=== PATIENT | male | born 1945 | race Caucasian/White ===

== ENCOUNTER 2024-05-26 14:57 | Inpatient (IN) | payer OTHER ==
[~2024-05-26] VITALS: Ht 154.9 cm; Wt 83.2 kg
[~2024-05-26 14:57] MED LIST: AMLODIPINE BESYL5 MG PO; ATORVASTATIN CA10 M1 PO; BELBUCA75 MCG BC; BUPROPION75 MG PO; CARBIDOPA-LEVO1 EAC2 PO; ELIQUIS2.5 M1 PO; ELIQUIS5 M1 PO; FLOMAX0.4 MG PO; INFLUENZA VACCINE; LISINOPRIL20 MG PO; LOPRESSOR25 MG PO; MEMANTINE HCL10 MG PO; OMNICEF300 MG PO; PROPAFENONE HY150 MG PO; PROTONIX40 MG PO; QUETIAPINE FUM100 M1 PO; Sinemet Cr 25-11 TAB PO; Sinemet Cr 50/21 TAB PO; TOPROL XL25 MG PO
[2024-05-26 15:09] VITALS: BP 148/68
[2024-05-26] MEDS ORDERED: ACETAMINOPHEN 325 MG TAB PO PRN (16:25)
[2024-05-26] MEDS ORDERED: Ondansetron Hydrochloride 4 MG/2 ML VIAL IV PRN (16:25)
[2024-05-26] MEDS ORDERED: Magnesium Hydroxide 30 ML UDC PO PRN (16:25)
[2024-05-26] MEDS ORDERED: BISACODYL 5 MG TAB PO PRN (16:25)
[2024-05-26] MEDS ORDERED: BISACODYL 10 MG SUPP R PRN (16:25)
[2024-05-26] MEDS ORDERED: Acetaminophen/Hydrocodone 5 MG/325 MG TABLET PO PRN (16:25)
[2024-05-26 16:29] LABS: BASO % 0.4 % (0.0-1.0); EOS # 0.3 10*3/uL (0.0-0.4); EOS % 5.4 % (1.0-4.0); HEMATOCRIT 37.4 % (42.0-52.0); MEAN CELL VOLUME 93.7 fl (80.0-94.0); MEAN CORPUSCULAR HGB 29.8 pg (27.0-31.0); MEAN CORPUSCULAR HGB CONC 31.8 g/dl (33.0-37.0); MEAN PLATELET VOLUME 9.8 fl (9.6-12.3); MONO # 0.5 10*3/uL (0.1-1.0); MONO % 9.1 % (3.0-9.0); NEUT # 2.6 10*3/uL (2.3-7.9); NEUT % 49.1 % (47.0-73.0); PLATELET COUNT AUTOMATED 141 10*3/uL (130-400); RED BLOOD COUNT 3.99 10*6/uL (4.50-5.90); RED CELL DISTRI WIDTH 13.6 % (0-14.5); WHITE BLOOD COUNT 5.2 10*3/uL (4.8-10.8)
[2024-05-26 16:48] LABS: BUN 27 mg/dl (9-23); CHLORIDE 107 mmol/L (98-107); POTASSIUM 3.8 mmol/L (3.4-5.1)
[2024-05-26] MEDS ORDERED: MELATONIN10 M2 PO (16:49)
[2024-05-26] MEDS ORDERED: MELOXICAM15 MG PO (16:49)
[2024-05-26] MEDS ORDERED: AREXVY VIA120 MCG/0. IM (16:50)
[2024-05-26] MEDS ORDERED: Carbidopa/Levodopa CR 25/100MG 1 TAB PO SCH (18:00)
[2024-05-26] MEDS ORDERED: ATORVASTATIN CALCIUM 10 MG TAB PO SCH (18:00)
[2024-05-26] MEDS ORDERED: LORazepam 2 MG/ML VIAL IV ONE (21:40)
[2024-05-26] MEDS ORDERED: LORazepam 2 MG/ML VIAL ONE (21:56)
[2024-05-26] MEDS ORDERED: CEFDINIR 300 MG CAP PO SCH (22:00)
[2024-05-26] MEDS ORDERED: buPROPion Hydrochloride 75 MG TAB PO SCH (22:00)
[2024-05-26] MEDS ORDERED: [UNRECOGNIZED DRUG - OTHER] PO SCH (22:00)
[2024-05-26] MEDS ORDERED: Metoprolol Tartrate 25 MG TAB PO SCH (22:00)
[2024-05-26] MEDS ORDERED: Memantine Hydrochloride 10 MG TAB PO SCH (22:00)
[2024-05-26] MEDS ORDERED: APIXABAN 5 MG TAB PO SCH (22:00)
[2024-05-26] MEDS ORDERED: Melatonin 5 MG TABLET PO SCH (22:00)
[2024-05-26] MEDS ORDERED: LISINOPRIL 20 MG TAB PO SCH (22:00)
[2024-05-26] MEDS ORDERED: QUETIAPINE FUMARATE 100 MG TAB PO SCH (22:00)
[2024-05-26 23:20] VITALS: BP 126/52
[2024-05-26 23:45] VITALS: BP 108/52
[2024-05-27] MEDS ORDERED: ACETAMINOPHEN500 M4 PO (03:13)
[2024-05-27] MEDS ORDERED: Pantoprazole Sodium 40 MG TAB PO SCH (06:00)
[2024-05-27 06:46] LABS: ALKALINE PHOSPHATASE 82 U/L (46-116); BUN 27 mg/dl (9-23); CHLORIDE 106 mmol/L (98-107); POTASSIUM 4.1 mmol/L (3.4-5.1); TOTAL PROTEIN 6.3 gm/dL (6.0-8.0)
[2024-05-27 07:02] LABS: SGPT/ALT < 7 U/L (5-49)
[2024-05-27 07:03] LABS: BASO % 0.4 % (0.0-1.0); EOS # 0.1 10*3/uL (0.0-0.4); EOS % 1.1 % (1.0-4.0); HEMATOCRIT 36.3 % (42.0-52.0); MEAN CELL VOLUME 92.6 fl (80.0-94.0); MEAN CORPUSCULAR HGB 29.1 pg (27.0-31.0); MEAN CORPUSCULAR HGB CONC 31.4 g/dl (33.0-37.0); MEAN PLATELET VOLUME 10.5 fl (9.6-12.3); MONO # 0.6 10*3/uL (0.1-1.0); NEUT # 5.1 10*3/uL (2.3-7.9); NEUT % 69.2 % (47.0-73.0); PLATELET COUNT AUTOMATED 126 10*3/uL (130-400); RED BLOOD COUNT 3.92 10*6/uL (4.50-5.90); RED CELL DISTRI WIDTH 13.8 % (0-14.5); WHITE BLOOD COUNT 7.3 10*3/uL (4.8-10.8)
[2024-05-27 08:00] VITALS: BP 128/68
[2024-05-27] MEDS ORDERED: Tamsulosin Hydrochloride 0.4 MG CAP PO SCH (10:00)
[2024-05-27] MEDS ORDERED: amLODIPine besylate 5 MG TAB PO SCH (10:00)
[2024-05-27 12:00] VITALS: BP 133/56
[2024-05-27] MEDS ORDERED: HYDROCODONE-AC1 EAC1 PO (14:57)
[2024-05-27 16:00] VITALS: BP 133/68
[2024-05-28] MEDS ORDERED: MUPIROCIN 15 GM TUBE T SCH (10:00)
== END 2024-05-27 18:50 | DRG 554 ==
LOC: ED 14:57 → 4E 15:54 → EDHOLD 15:54 → 4E 23:08
PROVIDERS: Student in an Organized Health Care Education/Training Program; ADMIT Internal Medicine; ATTEND Internal Medicine
DX: M16.12 Unilateral primary osteoarthritis, left hip (principal); F02.83 Dementia in other diseases classified elsewhere, unspecified severity, with mood disturbance; G20.A1 Parkinson's disease without dyskinesia, without mention of fluctuations; K21.9 Gastro-esophageal reflux disease without esophagitis; G47.00 Insomnia, unspecified; S91.102A Unspecified open wound of left great toe without damage to nail, initial encounter; I48.91 Unspecified atrial fibrillation; N40.0 Benign prostatic hyperplasia without lower urinary tract symptoms; E78.5 Hyperlipidemia, unspecified; I10 Essential (primary) hypertension; R27.0 Ataxia, unspecified; S80.811A Abrasion, right lower leg, initial encounter; K08.409 Partial loss of teeth, unspecified cause, unspecified class; Z88.0 Allergy status to penicillin; Z88.8 Allergy status to other drugs, medicaments and biological substances; Z91.09 Other allergy status, other than to drugs and biological substances; Z79.899 Other long term (current) drug therapy; Z79.01 Long term (current) use of anticoagulants; Z79.2 Long term (current) use of antibiotics; Z82.49 Family history of ischemic heart disease and other diseases of the circulatory system; X58.XXXA Exposure to other specified factors, initial encounter; Y93.89 Activity, other specified; Y92.89 Other specified places as the place of occurrence of the external cause; Y99.8 Other external cause status

== ENCOUNTER 2024-06-16 23:47 | Emergency (ER) | payer OTHER ==
[~2024-06-16] VITALS: Ht 182.8 cm; Wt 77.1 kg
[~2024-06-16 23:47] MED LIST changes: +ACETAMINOPHEN500 M4 PO; +AREXVY VIA120 MCG/0. IM; +HYDROCODONE-AC1 EAC1 PO; +MELATONIN10 M2 PO; +MELOXICAM15 MG PO
[2024-06-17] MEDS ORDERED: Bacitracin Zinc 14 GM TUBE T ONE (00:55)
== END 2024-06-17 01:54 ==
LOC: ED 23:47
DX: S01.01XA Laceration without foreign body of scalp, initial encounter (principal); I10 Essential (primary) hypertension; I48.91 Unspecified atrial fibrillation; M19.90 Unspecified osteoarthritis, unspecified site; R40.4 Transient alteration of awareness; Z88.0 Allergy status to penicillin; Z88.1 Allergy status to other antibiotic agents; Z88.8 Allergy status to other drugs, medicaments and biological substances; Z98.890 Other specified postprocedural states; W19.XXXA Unspecified fall, initial encounter; Y93.89 Activity, other specified; Y92.129 Unspecified place in nursing home as the place of occurrence of the external cause; Y99.8 Other external cause status